=== PATIENT | female | born 1950 | race Caucasian/White ===

== ENCOUNTER → 2023-06-25 10:36 | Outpatient (BNVA) | payer MEDICARE, SELFPAY | PROVIDERS: PCP Internal Medicine Infectious Disease; Visit Provider Internal Medicine | DX: M25.50 Pain in unspecified joint (principal); M54.50 Low back pain, unspecified; E03.9 Hypothyroidism, unspecified; D50.9 Iron deficiency anemia, unspecified | CPT/HCPCS: 36415; 72100; 73030; 73120; 73502; 73560; 80053; 82550; 82607; 82728; 83516; 83520; 83540; 84443; 84550; 85025; 85651; 86140; 86160; 86162; 86200; 86235; 86255; 86376; 86431; 86704; 86803; 87340; 99204 ==

== ENCOUNTER → 2023-09-25 09:58 | Outpatient (BNVA) | payer MEDICARE, SELFPAY | PROVIDERS: PCP Internal Medicine Infectious Disease; Visit Provider Internal Medicine | DX: L98.9 Disorder of the skin and subcutaneous tissue, unspecified (principal); M19.90 Unspecified osteoarthritis, unspecified site; M54.50 Low back pain, unspecified; R76.8 Other specified abnormal immunological findings in serum; R21 Rash and other nonspecific skin eruption | CPT/HCPCS: 99214 ==

== ENCOUNTER → 2023-12-16 09:57 | Outpatient (BNVA) | payer MEDICARE, BC, SELFPAY | PROVIDERS: PCP Internal Medicine Infectious Disease; Referring Provider Internal Medicine; Visit Provider Nurse Practitioner Family | DX: L57.0 Actinic keratosis (principal); L57.8 Other skin changes due to chronic exposure to nonionizing radiation; L81.4 Other melanin hyperpigmentation; D18.01 Hemangioma of skin and subcutaneous tissue; L82.1 Other seborrheic keratosis | CPT/HCPCS: 17000; 17110; 99203 ==

== ENCOUNTER → 2025-02-18 11:00 | Outpatient (BNVA) | payer MEDICARE, SELFPAY | PROVIDERS: PCP Internal Medicine Infectious Disease; Visit Provider Nurse Practitioner Family | DX: L30.4 Erythema intertrigo (principal); L57.8 Other skin changes due to chronic exposure to nonionizing radiation; X32.XXXA Exposure to sunlight, initial encounter; L57.0 Actinic keratosis; L81.4 Other melanin hyperpigmentation; L57.3 Poikiloderma of Civatte; L60.8 Other nail disorders; D18.01 Hemangioma of skin and subcutaneous tissue; L82.1 Other seborrheic keratosis; L82.0 Inflamed seborrheic keratosis; R20.9 Unspecified disturbances of skin sensation; R20.8 Other disturbances of skin sensation | CPT/HCPCS: 17000; 17110; 99214 ==

== ENCOUNTER → 2025-04-22 13:53 | Outpatient (BNVA) | payer MEDICARE, SELFPAY | PROVIDERS: PCP Internal Medicine Infectious Disease; Visit Provider Internal Medicine Rheumatology | DX: R21 Rash and other nonspecific skin eruption (principal); M05.79 Rheumatoid arthritis with rheumatoid factor of multiple sites without organ or systems involvement; Z79.899 Other long term (current) drug therapy; Z71.85 Encounter for immunization safety counseling | CPT/HCPCS: 36415; 80076; 82565; 85025; 85651; 86140; 99215 ==

== ENCOUNTER → 2025-09-15 13:59 | Outpatient (BNVA) | payer MEDICARE, SELFPAY | PROVIDERS: PCP Internal Medicine Infectious Disease; Visit Provider Internal Medicine Rheumatology | DX: R21 Rash and other nonspecific skin eruption (principal); M05.79 Rheumatoid arthritis with rheumatoid factor of multiple sites without organ or systems involvement; Z79.899 Other long term (current) drug therapy; Z71.85 Encounter for immunization safety counseling | CPT/HCPCS: 99214 ==